=== PATIENT | female | born 1990 | race African-American/Black ===

== ENCOUNTER 2019-05-03 21:53 | Emergency (ER) | payer SELFPAY ==
[~2019-05-03] VITALS: Ht 165.1 cm; Wt 61.2 kg
--- NOTE | 2019-05-03 22:12 | NUR ---
ED Nurse Note: pt walked in c/o "not feeling good" pt reports she was walking around all day and didn't feel so well and came to hospital, pt also reports she gave last year june and wanted to get checked out, pt reports she never went back to her obgyn. noted pt disheveled and unkempt, pt slurred speech noted, vss, will cont monitor.
[2019-05-03 22:15] VITALS: BP 125/87
--- NOTE | 2019-05-03 22:29 | Emergency Room Report ---
History of Present Illness General Chief Complaint: General Complaint Source: Patient Present Illness HPI This a 20-year-old female with no past medical history. She presents with chief complaint of feeling weak and tired. She states she this because she been walking around a lot. No nausea no vomiting. No suicidal thoughts homicidal thought. Denies any drug use. Here she wanted some place to rest and something to eat. Allergies: Coded Allergies: No Known Allergies (Unverified , 05/03/19) Patient History Past Medical History: see triage record, old chart reviewed Past Surgical History: none Pertinent Family History: none Social History: Denies: smoking Last Menstrual Period: unk Now: No Immunizations: other Reviewed Nursing Documentation: PMH: Agreed; PSxH: Agreed Review of Systems Constitutional: Reports: weakness Eye: Denies: eye pain, blurred vision ENT: Denies: ear pain, nose congestion, throat swelling Respiratory: Denies: cough, shortness of breath Cardiovascular: Denies: chest pain, palpitations Gastrointestinal: Denies: abdominal pain, diarrhea, nausea, vomiting Musculoskeletal: Denies: back pain, joint pain Skin: Denies: rash Neurological: Denies: headache, numbness Endocrine: Denies: increased thirst, increased urine Hematologic/Lymphatic: Denies: easy bruising All Other Systems: negative except mentioned in HPI Physical Exam Vital Signs Date Time Temp Pulse Resp B/P (MAP) Pulse Ox O2 Delivery O2 Flow Rate FiO2 05/03/19 22:03 97.9 91 18 125/87 (100) 98 Room Air Vitals normal Sp02 EP Interpretation: reviewed, normal General Appearance: well appearing, no apparent distress, alert Head: normocephalic, atraumatic Eyes: bilateral eye PERRL, bilateral eye EOMI ENT: hearing grossly normal, normal pharynx Neck: full range of motion, supple, no meningismus Respiratory: chest non-tender, lungs clear, normal breath sounds Cardiovascular #1: regular rate, rhythm, no murmur Gastrointestinal: normal bowel sounds, non tender, no mass, no organomegaly, no bruit, non-distended Musculoskeletal: back normal, gait/station normal, normal range of motion Neurologic: other - Is agitated and cannot sit still Psychiatric: mood/affect normal Medical Decision Making Diagnostic Impression: Primary Impression: Substance abuse Additional Impression: Weakness generalized ER Course Plan advised weakness. No focal deficit. She is walking around without any problem. I suspect substance abuse since she is very jittery. No suicidal thoughts homicidal thought. No criteria for 5150. Last Vital Signs Date Time Temp Pulse Resp B/P (MAP) Pulse Ox O2 Delivery O2 Flow Rate FiO2 05/03/19 22:15 91 18 Room Air 05/03/19 22:15 97.9 125/87 98 Status: improved Disposition: HOME, SELF-CARE Condition: Stable Additional Instructions: Increase fluids. Follow-up with your doctor in 7 days. Abstain from drugs and alcohol. Return if worse. Joey Reed MD May 03, 2019 22:29
--- NOTE | 2019-05-03 22:33 | NUR ---
ED Nurse Note: pt is cleared to be d/c per ERMD, pt states she hasn't been eating and drinking water, pt given sandwich and juices, pt given set of clothes with a bag, pt given referral list for homeless custodial, pt states she will pick one and walk. pt ambulatory w/ steady gait, pt left w/ all belongings.
[2019-05-03 22:34] VITALS: BP 125/83
== END 2019-05-03 22:45 | disposition home or self-care (01) ==
LOC: EDSEX 21:53 → EMR 22:34
DX: R53.1 Weakness (principal); F19.10 Other psychoactive substance abuse, uncomplicated
CPT/HCPCS: 99281